=== PATIENT | female | born 2000 | race Caucasian/White ===

== ENCOUNTER 2019-11-25 21:31 | Observation (INO) | payer MEDICAID ==
[~2019-11-25] VITALS: Ht 160 cm; Wt 86.6 kg
[2019-11-25] MEDS ORDERED: ACETAMINOPHEN 325MG TABLET PO NR (22:15)
[2019-11-25] MEDS ORDERED: LACTATED RINGERS 1,000 ML IV STA (22:59)
== END 2019-11-25 23:55 | disposition home or self-care (01) ==
LOC: 8 EST LDRP 21:31
PROVIDERS: ADMIT Obstetrics & Gynecology; ATTEND Obstetrics & Gynecology
DX: O26.892 Other specified pregnancy related conditions, second trimester (principal); R10.30 Lower abdominal pain, unspecified; Z3A.22 22 weeks gestation of pregnancy
CPT/HCPCS: 99281; G0378

== ENCOUNTER 2024-05-05 09:57 | Emergency (ER) | payer MEDICAID ==
[~2024-05-05] VITALS: Ht 160 cm; Wt 84.0 kg
[2024-05-05 10:06] VITALS: BP 126/71; RESP 18; TEMP 98.7; O2SAT 100
[2024-05-05 10:08] VITALS: PULSE 104
== END 2024-05-05 13:41 | disposition home or self-care (01) ==
LOC: ER 10:38
DX: O26.891 Other specified pregnancy related conditions, first trimester (principal); S40.021A Contusion of right upper arm, initial encounter; Z3A.10 10 weeks gestation of pregnancy; Y08.89XA Assault by other specified means, initial encounter; Y93.89 Activity, other specified; Y92.89 Other specified places as the place of occurrence of the external cause; Y99.8 Other external cause status
CPT/HCPCS: 76801; 99284